=== PATIENT | female | born 1965 | race Caucasian/White ===

== ENCOUNTER 2016-03-23 11:26 | Observation (INO) | payer MEDICAID ==
[~2016-03-23] VITALS: Ht 167.6 cm; Wt 61.4 kg
--- NOTE | ~2016-03-23 | HEMODYNAMI ---
PATIENT:XOCHILT SHELLEY MEDICAL RECORD: [id number] : 63 LOCATION:[place] [address] ADMISSION DATE: 03/23/16 Generatedon:03/24/20167:31 Patient name: XOCHILT SHELLEY Patient #: [id number] SSN: : 1965 Date of study: 03/23/2016 Page: Of Hemodynamic Procedure Report Patient Data Patient Demographics Procedure consent was obtained First Name: XOCHILT Gender: Female Last Name: DAPHNEY : 1965 Patient #: [id number] Age: 50 year(s) Race: Unknown Additional ID: [id number] Contact details Address: [address] [place] [address] State: [place] City: [place] Zip code: [address] Past Medical History Allergies: No known allergies Admission Admission Data Admission Date: 03/23/2016 Admission Time: 14:10 Room #: [facility] Lab Results Lab Result Date: 03/23/2016 Lab Result Time: 0:00 Biochemistry Name Units Result Min Max Creatinine mg/dl 0.8 --(-*--)-- 0.6 1.3 CBC Name Units Result Min Max Hemoglobin g/dl 14 --(*---)-- 13.5 17.5 Procedure Procedure Types Cath Procedure Diagnostic Procedure [facility] w/Coronaries Miscellaneous Procedures Moderate Sedation up to 15 minutes Procedure Description Procedure Date Procedure Date: 03/23/2016 Procedure Start Time: 16:09 Procedure End Time: 16:17 Procedure Staff Name Function Carolina Hooks RT Scrub Junior Andres RN Nurse Sundar Esteban RT Monitor Portillo Duncan MD Performing Physician Procedure Data Cath Procedure Fluoroscopy Diagnostic fluoroscopy Total fluoroscopy Time: 1.7 time: 1.7 min min Diagnostic fluoroscopy Total fluoroscopy dose: 307 dose: 307 mGy mGy Contrast Material Contrast Material Type Amount (ml) Isovue 300 55 Entry Location Entry Primary Successful Side Size Upsize Upsize Entry Closure Moon ccessful Closure Location (Fr) 1 (Fr) 2 (Fr) Remarks Device Remarks Femoral Right 6 Fr Mechanical artery Short Compression Estimated blood loss: 5 ml Diagnostic catheters Device Type Used For End Catheter Placement Terumo 5Fr Rtevor 110cm LV Angiography catheter Terumo 5Fr Trevor 110cm Right Coronary catheter Angiography Terumo 5Fr Trevor 110cm Left Coronary catheter Angiography Procedure Complications No complications Procedure Medications Medication Administration Route Dosage Oxygen NC 2 l/min Heparin Flush Bag added to field 2 bags (1000units/500ml NS) 0.9% NaCl I.V. 100 ml/hr Versed I.V. 2 mg Fentanyl I.V. 100 mcg Radial Cocktail added to field 1 syringe (Verapomil 2mg/Nitro 400mcg/Heparin 1500units) Fentanyl I.V. 100 mcg Versed I.V. 2 mg Hemodynamics Rest HGB: 14 (g/dl) Heart Rate: 96 (bpm) Snapshots Pre Cath Intra NCS Post Cath Vital Signs Time Heart Resp SPO2 NIBP (mmHg) Rhythm Pain Sedation Rate (ipm) (%) Status Level (bpm) 15:59:45 103 25 100 157/87(124) NSR 0 (11) 10(A) , No pain 16:03:59 88 18 100 135/85(112) NSR 0 (11) 10(A) , No pain 16:08:09 79 18 100 129/76(119) NSR 0 (11) 10(A) , No pain 16:12:19 84 18 98 118/73(96) NSR 0 (11) 9(A) , No pain 16:16:25 80 19 95 113/68(97) NSR 0 (11) 9(A) , No pain Medications Time Medication Route Dose Verified Delivered Reason Notes Eff ectiveness by by 16:05:06 Oxygen NC 2 l/min Junior Pacheco Per Dmitry Andres RN physician RN 16:05:15 Heparin Flush added 2 bags Junior Pacheco used for Bag to Dmitry Andres payable representative (1000units/500ml field RN NS) 16:05:27 0.9% NaCl I.V. 100 Junior Pacheco Per ml/hr Dmitry Andres RN physician RN 16:06:27 Versed I.V. 2 mg Junior Pacheco for Dmitry Andres RN sedation RN 16:06:35 Fentanyl I.V. 100 mcg Junior Pacheco for Dmitry Andres RN sedation RN 16:06:52 Radial Cocktail added 1 Junior Pacheco used for (Verapomil to syringe Dmitry Andres payable representative 2mg/Nitro field RN 400mcg/Hepari 16:09:10 Fentanyl I.V. 100 mcg Junior Pacheco for Dmitry Andres RN sedation RN 16:11:21 Versed I.V. 2 mg Junior Pacheco for Dmitry Andres RN sedation paper sorter and counter Log Time Note 15:30:21 Junior Andres RN sent for patient. Start room use. 15:30:22 Time tracking: Regular hours 15:30:26 Plan of Care:Hemodynamics will remain stable., Cardiac rhythm will remain stable., Comfort level will be maintained., Respiratory function will remain adequate., Patient/ family verbilizes understanding of procedure., Procedure tolerated without complication., Recovers from procedure without complications.. 15:48:36 Patient received from PCU to CCL 1 Alert and oriented. Tansferred to table in Supine position. 15:48:38 Correct patient and procedure confirmed by team. 15:48:38 Warm blankets applied, and fatuma hugger turned on for patient comfort. 15:48:39 Signed procedure consent form obtained from patient. 15:48:41 ECG and BP/O2 sat monitors applied to patient. 15:58:40 Vital chart was started 15:58:45 Rhythm: sinus rhythm 15:58:47 Full Disclosure recording started 15:59:09 H&P Date Dictated: 03/23/2016 Within 30 days and on chart.. 15:59:11 Pre-procedure instructions explained to patient. 15:59:12 Pre-op teaching completed and patient verbalized understanding. 15:59:13 Family in waiting room. 15:59:14 Patient NPO since Midnight. 15:59:42 Patient allergic to No known allergies 15:59:45 Is the patient allergic to Iodine/contrast media? No. 15:59:46 Is patient on blood thinner?Yes 15:59:48 ACC The patient was administered the following blood thiners within the last 24 hours: ACCPlavix 15:59:51 Patient diabetic? No. 15:59:55 Snore? Yes 15:59:55 Previous problem with sedation/anesthesia? No ? 15:59:57 Sleep apnea? No 15:59:58 Deviated septum? No 15:59:59 Sticks out tongue? Yes 15:59:59 Opens mouth fully? Yes 16:00:01 Airway obstruction? No ? 16:00:02 Dentures? No ? 16:00:08 Pre procedure: right dorsailis pedis pulse 2+ Normal; easily identifiable; not easily obliterated 16:00:11 Modified Ed's test Ulnar < 7 seconds 16:00:12 Patient pain scale 0/10 ?. 16:00:20 IV patent on arrival in left hand with 0.9% NaCl at [facility]. 16:01:24 Lab Result : Hemoglobin 14 g/dl 16:01:24 Lab Result : Creatinine 0.8 mg/dl 16::28 Lab results completed and on chart. 16:01:31 Right Radial & Right Groin area was prepped with chlora-prep and draped in sterile fashion 16:01:32 Sharps counted by scrub and verified by R.N. 16:01:32 Alarms reviewed by R. N. 16:01:34 Use device set Radial Dx 16:01:35 Acist Syringe opened to sterile field. 16:01:36 Bag Decanter opened to sterile field. 16:01:36 Medline Cath Pack opened to sterile field. 16:01:37 St Fly 260cm J .035 wire opened to sterile field. 16:01:37 Terumo 6Fr Slender Glidesheath opened to sterile field. 16:01:38 Acist Manifold opened to sterile field. 16:01:38 Acist Hand Control opened to sterile field. 16:01:39 Tegaderm 4 x 4 opened to sterile field. 16:02:00 Final Timeout: patient, procedure, and site verified with staff and physician. All members of the team are in agreement. 16:02:03 Right Radial site verified by team. 16:02:08 Physical assessment completed. ASA score P 2 - A patient with mild systemic disease as per Portillo Duncan MD. 16:02:11 Sedation plan: IV Moderate Sedation Versed, Fentanyl 16:02:19 Baseline sample Acquired. 16:05:06 Oxygen 2 l/min NC was given by Junior Andres RN; Per physician; 16:05:15 Heparin Flush Bag (1000units/500ml NS) 2 bags added to field was given by Junior Andres RN; used for procedure; 16:05:27 0.9% NaCl 100 ml/hr I.V. was given by Junior Andres RN; Per physician; 16:05:59 Carolina Jessee RT(R) was relieved by Junior Andres RN as a nurse. 16:06:27 Versed 2 mg I.V. was given by Junior Andres RN; for sedation; 16:06:35 Fentanyl 100 mcg I.V. was given by Junior Andres RN; for sedation; 16:06:52 Radial Cocktail (Verapomil 2mg/Nitro 400mcg/Heparin 1500units) 1 syringe added to field was given by Junior Andres RN; used for procedure; 16:07:32 Zero performed for pressure channel P1 16:07:50 Procedure started. 16:08:40 Zero performed for pressure channel P1 16:09:02 Local anesthetic to right radial artery with Lidocaine 2% by Portillo Duncan MD.INITIAL ACCESS ONLY 16:09:10 Fentanyl 100 mcg I.V. was given by Junior Andres RN; for sedation; 16:10:33 A 6 Fr Short sheath was inserted into the Right Femoral artery 16:11:11 A Terumo 5Fr Trevor 110cm catheter was advanced over the wire and used for LV Angiography. 16:11:21 Versed 2 mg I.V. was given by Junior Andres RN; for sedation; 16:11:36 LV gram done using GALAN 16:11:40 EF : 60 % 16:11:42 LV hemodynamics recorded. 16:11:44 Injector settings: Ml/sec: 5, Volume: 15, 16:11:55 A Terumo 5Fr Trevor 110cm catheter was advanced over the wire and used for Right Coronary Angiography. 16:12:45 A Terumo 5Fr Trevor 110cm catheter was advanced over the wire and used for Left Coronary Angiography. 16:12:54 Catheter removed. 16:13:11 Sheath removed intact; hemostasis achieved with Mechanical Compression to the Right Femoral artery. 16:13:24 Procedure ended.(Physican Out) 16:14:12 Terumo TR Band Standard opened to sterile field. 16:14:13 Fluoroscopy time 01.70 minutes. 16:14:19 Flurop Dose total: 307 16:14:19 Fluoroscopy dose: 307 mGy 16:14:22 Contrast amount:Isovue 300 55ml. 16:14:23 Sharps counted by scrub and verified by R.N. 16:14:25 TR band inflated with 12cc of air. 16:14:27 Insertion/operative site no bleeding no hematoma. 16:14:32 Post right radial artery:stable, clean and dry 16:14:47 Post Procedure Pulses reassessed and unchanged 16:14:50 Post-procedure physical assessment completed. ASA score P 2 - A patient with mild systemic disease as per Portillo Duncan MD. 16:14:52 Post procedure rhythm: unchanged. 16:14:54 Estimated blood loss: 5 ml 16:14:55 Post procedure instruction explained to patient.Patient verbalizes understanding. 16:14:56 Patient needs reinforcement of post procedure teaching. 16:15:00 Procedure type changed to Cath procedure, Diagnostic procedure, LHC, LHC w/Coronaries, Miscellaneous Procedures, Moderate Sedation up to 15 minutes 16:15:05 Procedure Complication : No complications 16:15:09 See physician's report for complete and final results. 16:15:58 IV Extension Set opened to sterile field. 16:17:13 Procedure and supply charges have been captured, reviewed, submitted and are correct. 16:17:17 Vital chart was stopped 16:17:20 Report given to PCU. 16:17:25 Patient transfered to PCU with Bed. 16:17:31 Procedure ended. 16:17:31 Full Disclosure recording stopped 16:18:03 End room use (Document Last) Device Usage Item Name Manufacture Quantity Catalog Hospital Part Current Minimal Lot# / Number Charge Number Stock Stock Serial# Code Acist Acist 1 88950 284656 362753 [id number] 20 Syringe [employer] Inc Medline Cardinal 1 [id number] 804948 13777 794600 5 Cath Pack Health Bag Microtek 1 2001S 349739 55269 365730 5 Decanter [employer] Inc. Terumo 6Fr Terumo 1 [id number] 138100 373850 569565 [address] Fly St Fly 1 355046 982679 890202 701221 30 260cm J .035 wire Acist Hand Acist 1 52676 029553 621762 143574 5 Control [employer] Inc Acist Acist 1 28253 499673 631828 916427 5 Manifold Medical [employer] Inc Tegaderm 4 3M 1 1626W 865173 680224 211637 5 x 4 Terumo 5Fr Terumo 1 62-1134 348656 141668 187582 5 Trevor 110cm catheter IV Hospira 1 155138 50546 234704 5 Extension Set Terumo TR Terumo 1 [id number] 986107 400234 959877 40 Band Standard Signature Audit Mandan Stage Time Signature Unsigned Intra-Procedure 03/23/2016 Carolina Figueroa Counts 4:18:28 PM Counts RT(R) RT(R) 03/24/2016 7:29:57 AM Intra-Procedure 03/24/2016 Carolina 7:31:00 AM Counts RT(R) Signatures Monitor : Sundar Esteban RT Signature : Date : Time : [address] [address]
[2016-03-23 11:54] LABS: BASOPHILS 0.3 % (0.0-2.0); HEMATOCRIT 41.3 % (36.0-48.0); LYMPHOCYTES 31.1 % (15-50); MCH 31.2 pg (26.0-34.0); MCHC 33.9 g/dL (31.0-37.0); MEAN PLATELET VOLUME 10.9 fL (7.4-10.4); MONOCYTES 8.3 % (2-11); NEUTROPHILS 58.3 % (40-80); PLATELET COUNT 194 10x3/uL (130-400); RBC 4.49 10x6/uL (4.00-5.40); WBC 6.1 10x3/uL (4.8-10.8)
[2016-03-23 12:13] LABS: ALBUMIN 4.1 g/dL (3.4-5.0); ALKALINE PHOSPHATASE 67 U/L (46-116); ALT (SGPT) 39 U/L (10-68); CALC OSMOLALITY 276 mosm/kg (275-300); CALCIUM 9.9 mg/dL (8.5-10.1); CARBON DIOXIDE 30.9 mmol/L (21.0-32.0); CHLORIDE - SERUM 103 mmol/L (98-107); CREATININE - SERUM 0.8 mg/dL (0.6-1.3); GLUCOSE 87 mg/dL (74-106); POTASSIUM - SERUM 3.9 mmol/L (3.5-5.1); PROTEIN - SERUM 7.9 g/dL (6.4-8.2); SODIUM 140 mmol/L (136-145); UREA NITROGEN 11 mg/dL (7-18); eGFR NON AFRICAN AMERICAN 80 mL/min (90-120)
[2016-03-23 12:24] LABS: CKMB 1.6 U/L (0.0-3.6); CREATINE KINASE 84 UL (21-215); TROPONIN-I < 0.017 ng/mL (0.000-0.060)
--- NOTE | 2016-03-23 14:58 | NUR ---
TRANSFER FROM ER BY W/C. MARKUSINTED TO ROOM. CALL LIGHT IN REACH. WILL CONT. PLAN OF CARE.
[2016-03-23 15:15] VITALS: BP 143/99; Ht 167.6 cm; Wt 61.4 kg
[2016-03-23] MEDS ORDERED: XANAX0.25 MG (15:22)
[2016-03-23] MEDS ORDERED: HYDROCODON-ACE1 EAC7 PO (15:22)
[2016-03-23] MEDS ORDERED: PRAVASTATIN SOD10 MG PO (15:23)
[2016-03-23] MEDS ORDERED: FLUTICASONE PRO16 GM NASAL (15:24)
[2016-03-23] MEDS ORDERED: BUPROPION XL150 MG (15:25)
[2016-03-23] MEDS ORDERED: PROVENTIL HFA6.7 GM (15:25)
[2016-03-23] MEDS ORDERED: ELAVIL25 MG (15:25)
[2016-03-23] MEDS ORDERED: COZAAR100 MG PO (15:25)
[2016-03-23] MEDS ORDERED: ULTRAM50 MG (15:26)
[2016-03-23] MEDS ORDERED: ZANAFLEX4 MG (15:26)
[2016-03-23] MEDS ORDERED: ELAVIL25 MG PO (15:28)
--- NOTE | 2016-03-23 15:48 | NUR ---
PRE-OPS GIVEN. TO PEGA DEVELOPER BY BED.
[2016-03-23 16:16] VITALS: BP 143/99
--- NOTE | 2016-03-23 16:39 | NUR ---
BACK FROM CIRCULATION ASSISTANT. VS WNL. RIGHT WRIST STABLE WITH TR BAND INTACT. WILL MONITOR.
--- NOTE | 2016-03-23 18:35 | NUR ---
TR BAND DCD WITHOUT BLEEDING OR HEMATOMA NOTED. IV AND TELEMETRY DCD. DC PLANS GIVEN. UNDERSTANDING VOICED. ESCORTED TO CAR BY W/C.
--- NOTE | 2016-04-02 08:46 | OP ---
PATIENT NAME: XOCHILT SHELLEY MEDICAL RECORD: [id number] :63 LOCATION:D.M2 D.2121 ADMISSION DATE:03/23/16 SURGEON: ELOISA WILKERSON MD DATE OF OPERATION: 03/23/2016 PROCEDURES: 1. Left heart catheterization. 2. Selective coronary angiography. 3. Left ventriculogram. INDICATION: Chest pain compatible with angina. PROCEDURE IN DETAIL: After informed consent was obtained and after detailed explanation of risks, benefits as well as alternative therapies, the patient elected to proceed with angiogram and heart catheterization. The right radial area was prepped and draped in normal sterile fashion. Right radial artery was cannulated via modified Seldinger technique with placement of 5-Uzbek sheath. All catheters exchanged through this sheath. FINDINGS: The left ventriculogram was performed in standard 30-degree GALAN view, reveals good cardiac wall motion throughout all segments. Overall ejection fraction estimated 60%. SELECTIVE CORONARY ANGIOGRAPHY: Left main, left anterior descending, left circumflex, right coronary are all smooth-walled vessels with no angiographic evidence of coronary artery disease. OVERALL IMPRESSION: 1. No angiographic evidence of coronary artery disease. 2. Normal left heart pressures. 3. Normal left ventricular systolic function. Chest pain is noncardiac in etiology. No further cardiac workup needs to be ascertained. TRANSINT:[id number] Voice Confirmation ID: [id number] DOCUMENT ID: [id number] ELOISA WILKERSON MD at 0846 CC: [id number] DICTATION DATE: 03/23/16 1616 PASTE MIXER: 03/23/16 2340 DIS IN 03/23/16 [facility] [address] [place] [address]
--- NOTE | 2016-04-02 08:46 | HP ---
PATIENT: XOCHILT SHELLEY MEDICAL RECORD: [id number] ACCOUNT: [id number] LOCATION:[address] : 63 ADMISSION DATE: 03/23/16 HISTORY AND PHYSICAL EXAMINATION DATE OF SERVICE: 03/23/2016 DIAGNOSES: 1. Chest pain compatible with angina. 2. Family history of coronary artery disease. 3. Hypertension. 4. Hyperlipidemia. 5. Smoking history. HISTORY OF PRESENT ILLNESS: Mrs. Shelley has multiple cardiac risk factors as above. She began having chest discomfort yesterday, a relatively classic anginal discomfort with a dull aching sensation across the anterior chest, worse with any exertion. It has progressed to some sharp pains today as well as the dull pain. The dull pain worsened and she was given 1 sublingual nitro in the Emergency Room. The dull pain has dramatically decreased with the nitro. She is still having pain 4/10. Her EKG is with no acute ST-T abnormalities. PHYSICAL EXAMINATION: GENERAL APPEARANCE: Well-nourished, well-developed, appears stated age. Level of distress, comfortable. PSYCHIATRIC: Mental status, alert, normal affect. Orientation, oriented to time, place and person. EYES: Lids and conjunctiva, noninjected. No discharge, no pallor. ENT: Lips, teeth, gums, normal dentition. Oropharynx, no cyanosis, no pallor. NECK: Carotid arteries, bilateral normal upstroke, no bruits, no thrills. JUGULAR VEINS: No jugular venous pressure or distention. CERVICAL LYMPH NODES: Nontender, nonenlarged. THYROID: Not enlarged. Nontender. No nodules. LUNGS: Respiratory effort, unlabored. CHEST: Normal curvature. No thoracic deformity. No chest wall tenderness. Percussion, resonant. Auscultation, clear. No wheezes, no rales, no rhonchi. CARDIOVASCULAR: Precordial exam, nondisplaced. No heaves or pericardial thrills. Rate and rhythm, regular. Heart sounds, normal S1, normal S2. No S3, no gallop, no rub. Systolic murmur, not heard. Diastolic murmur, not heard. EXTREMITIES: No cyanosis, no edema. Peripheral pulses, full and equal in all extremities, except as noted. No bruits appreciated. ABDOMEN: Soft, nondistended. Normal aorta. No bruit. Nontender. No masses. Liver, nontender, no hepatomegaly. Spleen, nontender, no splenomegaly. MUSCULOSKELETAL: No joint tenderness. No joint swelling. No erythema. NEUROLOGICAL: Normal gait, normal strength, normal tone. SKIN: Warm and dry. REVIEW OF SYSTEMS: The patient reports easy bruising but reports no swollen glands. The patient reports no fever, no night sweats, no significant weight gain, no significant weight loss. No significant exercise tolerance. The patient reports no dry eyes, no irritation, no vision change. Patient reports no difficulty hearing and no ear pain. Patient reports no frequent nose bleeds or nose and sinus problems. Patient reports on arm pain on exertion. No shortness of breath while lying down. No history of heart murmur. Patient reports no cough, no wheezing or coughing up blood. Patient reports no HISTORY AND PHYSICAL [id number] SHELLEY,XOCHILT abdominal pain, no vomiting. Normal appetite. No diarrhea and not vomiting blood. No nausea and no constipation. Patient reports no incontinence. No difficulty urinating. No hematuria. No increased frequency. Patient reports no muscle aches. No weakness, no arthralgias, no back pain. No swelling of the extremities. Patient reports no abnormal mole, no jaundice, no rashes. Reports no loss of consciousness. No weakness and no numbness. No seizures, dizziness, or headaches. The patient reports no depression, no sleep disturbance, feeling safe in a relationship and no alcohol abuse. Patient reports on fatigue. Reports no runny nose or sinus pressure. No itching, no hives, and no frequent sneezing. OVERALL IMPRESSION: Chest pain compatible with angina with multiple cardiac risk factors. There is highly likelihood that she has hemodynamically significant coronary artery disease. We will proceed with coronary angiography. Further care depends upon findings of the angiography. TRANSINT:[id number] Voice Confirmation ID: [id number] DOCUMENT ID: [id number] ELOISA WILKERSON MD at 0846 CC: [id number] DICTATION DATE: 03/23/16 1256 LOAN INTERVIEWER: 03/23/16 1445 DIS IN 03/23/16 [place] [id number] [place] [address]
--- NOTE | 2016-04-02 08:46 | DS ---
PATIENT:XOCHILT SHELLEY :63 MEDICAL RECORD: [id number] DISCHARGE SUMMARY ADMISSION DATE: 03/23/16 DISCHARGE DATE: 03/23/16 DIAGNOSES: 1. Noncardiac chest pain. 2. Normal cardiac catheterization. 3. Hypertension. 4. Hyperlipidemia. 5. Smoking history. HOSPITAL COURSE: Mrs. Shelley presents with multiple risk factors for coronary artery disease and new onset chest pain; however, cardiac catheterization revealed no significant coronary artery disease, discharged home with no change in her medications, follow up with her primary care doctor for noncardiac chest pain evaluation. TRANSINT:[id number] Voice Confirmation ID: [id number] DOCUMENT ID: [id number] ELOISA WILKERSNO MD at 0846 CC: [id number] DICTATION DATE: 03/23/161614 DISTRIBUTION COLLECTION OPERATOR: 03/24/16 0825 DIS IN 03/23/[address] [address]
== END 2016-03-23 18:36 | disposition home or self-care (01) ==
LOC: D.ER 11:26 → OBSVTIME 14:10 → D.M2 14:10
PROVIDERS: Emergency Medicine; ADMIT Internal Medicine Interventional Cardiology
DX: R07.89 Other chest pain (principal); I10 Essential (primary) hypertension; E78.5 Hyperlipidemia, unspecified; Z87.891 Personal history of nicotine dependence

== ENCOUNTER → 2019-10-01 13:09 | Outpatient (CLI) | payer MEDICAID ==
[2016-03-23 15:15] VITALS: BMI 21.8
[~2019-10-01 13:09] MED LIST: BUPROPION XL150 MG; COZAAR100 MG PO; ELAVIL25 MG; ELAVIL25 MG PO; FLUTICASONE PRO16 GM NASAL; HYDROCODON-ACE1 EAC7 PO; PRAVASTATIN SOD10 MG PO; PROVENTIL HFA6.7 GM; ULTRAM50 MG; XANAX0.25 MG; ZANAFLEX4 MG
--- NOTE | 2019-10-03 08:18 | EC ---
PATIENT:XOCHILT SHELLEY DATE OF SERVICE: 10/01/19 SEX: F MEDICAL RECORD: [id number] DATE OF : 63 LOCATION:D[facility] AGE OF PATIENT: 53 ADMISSION DATE: 10/01/19 REFERRING PHYSICIAN: INTERPRETING PHYSICIAN: IMANI CANDELARIA MD ECHOCARDIOGRAM REPORT ECHO CHARGES 4 ECHO COMPLETE Date: 10/01/19 CLINICAL DIAGNOSIS: HEART MURMUR/HTN ECHOCARDIOGRAPHIC MEASUREMENTS (adult normal given) AC root (d.<3.7cm) 2.7 cm LV Septum d (<1.2 cm> 1.2 cm Valve Excursion 1.3 cm LV Septum (systole) 1.4 cm Left Atria (s.<4.0cm> 3.6 cm LVPW d(<1.2cm) 1.4 cm RV (d.<2.3cm) 3.5 cm LVPW (sytole) 1.5 cm LV diastole(<5.6CM) 4.4 cm MV E-F(>70mm/sec) cm LV systole 3.1 cm LVOT Diameter 1.8 cm MV exc.(>10mm) cm Est.ejection fraction (50-75%) % DOPPLER: LVIT cm/sec A 105.0cm/sec E 69.0 cm/sec LA cm/sec RVSP 38 mmHg LVOT 134 cm/sec AOP1/2T 582 m/s Asc. Ao 146 cm/sec RVOT 78 cm/sec RA cm/sec PA 148 cm/sec AV Gradient Peak 8.57 mmHg AV Mean 4.11 mmHg AV Area 2.5 cm MV Gradient Peak 5.27 mmHg MV Mean 1.98 mmHg MV Area cm COMMENTS: Life Skills Educator: 2 TANESHA PACHECO Ent Physician: 3 Dr. Rob TAPE# PACS Pericardial Effusion N DATE OF SERVICE: Adequate 2D echo, color flow, spectral Doppler, and M-Mode. Borderline LVH. LV internal dimensions are normal. Wall motion is normal. EF is greater than or equal to 55%. Aortic valve is tricuspid. No evidence of stenosis by Doppler interrogation. Left atrium is normal at 3.6 cm. Mitral valve shows prolapse. Trivial MR. Right-sided chambers are grossly normal. Trivial TR. Mild AI is noted as well. ECHOCARDIOGRAM REPORT [id number] XOCHILT SHELLEY TRANSINT:[id number] Voice Confirmation ID: [id number] DOCUMENT ID: [id number] IMANI CANDELARIA MD at 0818 CC: [id number] DICTATION DATE: 10/02/19 161 TREATING AND PUMPING SUPERVISOR: 10/02/192111 DEP CLI 10/01/19 [place] [id number] [place] [id number]
--- NOTE | 2019-10-03 08:18 | ST ---
PATIENT:XOCHILT SHELLEY MEDICAL RECORD: [id number] SEX: F LOCATION:[facility] ORDER #: ADMISSION DATE: 10/01/19 AGE OF PATIENT: 53 REFERRING PHYSICIAN: INTERPRETING PHYSICIAN: IMANI CANDELARIA MD DATE OF SERVICE: 10/01/2019 PROCEDURE: Treadmill stress test. Baseline ECG is normal. Exercised for 9 minutes on Devonte protocol. Maximum heart rate 142 beats per minute, greater than 85% max predicted. No ECG changes for ischemia. No symptoms of ischemia. Normal blood pressure on excise. No arrhythmias noted. Good exercise tolerance for age. TRANSINT:[id number] Voice Confirmation ID: [id number] DOCUMENT ID: [id number] IMANI CANDELARIA MD at 0818 CC: [id number] DICTATION DATE: 10/02/19 1254 CASH PROCESSING SPECIALIST: 10/03/19 0230 DEP CLI 10/01/[address] [address]
== END | disposition home or self-care (01) ==
LOC: D.HCCECHO 09-24 14:00
PROVIDERS: ATTEND Internal Medicine Interventional Cardiology
DX: I10 Essential (primary) hypertension (principal)